=== PATIENT | male | born 1950 | race Caucasian/White ===

== ENCOUNTER 2023-06-27 18:14 | Emergency (ER) | payer OTHER, SELFPAY ==
[2023-06-27 18:19] VITALS: BP 163/73
[2023-06-27 18:31] LABS: % Basophils 0.3 % (0-2); % Eosinophils 2.3 % (0-6); % Immature Granulocytes 0.4 % (0-0.5); % Lymphocytes 26.8 % (20.5-51.1); % Monocytes 8.9 % (1.7-9.3); % Neutrophils 61.3 % (42.2-75.2); Absolute Eosinophils 0.2 10^3/uL (0-0.7); Absolute Lymphocytes 2.5 10^3/uL (1.2-3.4); Absolute Monocytes 0.8 10^3/uL (0.1-0.6); Absolute Neutrophils 5.6 10^3/uL (1.4-6.5); Hematocrit 41.1 % (39.0-52.0); Hemoglobin 14.7 g/dL (13.0-18.0); Mean Corp Hgb Conc. 35.8 g/dL (33.0-37.0); Mean Corpuscular Hgb 31.7 pg (27.0-31.0); Mean Corpuscular Volume 88.6 fL (80.0-94.0); Mean Platelet Volume 10.1 fL (7.4-10.4); Nucleated Red Blood Cells % 0 % (-); Platelet Count 193 10^3/uL (130-400); Red Blood Cell Count 4.64 10^6/uL (4.70-6.10); Red Cell Dist. Width 12.8 % (11.5-14.5); White Blood Cell Count 9.2 10^3/uL (4.8-10.8)
[2023-06-27 18:42] LABS: ALT (SGPT) 25 U/L (0-50); AST (SGOT) 31 U/L (17-59); Albumin 4.2 g/dl (3.5-5.0); Alkaline Phosphatase 87 U/L (38-126); Blood Urea Nitrogen 18 mg/dl (9-20); Calcium 9.4 mg/dl (8.4-10.2); Carbon Dioxide 27 mmol/L (22-30); Chloride 104 mmol/L (98-107); Glucose 105 mg/dl (70-99); Potassium 4.1 mmol/L (3.5-5.1); Sodium 136 mmol/L (135-145); Total Bilirubin 0.6 mg/dl (0.2-1.3); Total Protein 6.7 g/dl (6.3-8.2); eGFR > 60.00
[2023-06-27] MEDS: TYLENOL 1000 MG PO (19:48)
[2023-06-27 19:53] VITALS: BP 148/73
--- NOTE | 2023-06-27 20:48 | ED.GENMED ---
History of Present Illness
General
Chief Complaint: Headache
Source: patient
Exam Limitations: none
Time Seen by Provider: 06/27/23 19:40
Nursing documentation reviewed up to this point in time: agreed with
Travel History
Have you had any contact with someone who has COVID-19?: No
Do you have any symptoms of coronavirus? Fever > 100 degrees, chills, cough, shortness of breath, sore throat, loss of taste or smell, muscle aches, or headache?: No
History of Present Illness
History of Present Illness:
Patient to ED iw complaint of worsening headache. Symptoms started 2 days ago and continue to worsen. Pain worse with forward bending. Denies fever/chills, n/v/d. No recent illness. Brought self to ED for eval.
Past History
Past History
ED Past Medical History: None, Cancer and Hypercholesterolemia
ED Past Surgical History: Tonsilectomy and Urological
Social History
Tobacco: Non-smoker
Personal:
Living: with family
Review of Systems
Review of Systems
Allergies reviewed?: Yes
All Other Systems: ROS reviewed and negative except as documented in HPI and ROS
Constitutional: Reports no symptoms
EENT: Reports other (Frontal sinus pressure)
Respiratory: Reports no symptoms
Cardiac: Reports no symptoms
ABD/GI: Reports no symptoms
: Reports no symptoms
Musculoskeletal: Reports no symptoms
Skin: Reports no symptoms
Neurological: Reports headache
Psychiatric: Reports no symptoms
Phy Exam
General Physical Exam
General Presentation: well appearing and no apparent distress
General age: appears stated age
General Skin: warm and dry
General Habitus: normal
General Mental: alert
General Hydration: appears well hydrated
ENT Exam
ENT Exam: EOMI, TM's normal, pharynx normal, neck supple, normocephalic and swallowing well
Eye Exam
Eye Exam: PERRL, EOMI, conjunctiva normal and globe normal
Neurological Exam
Neurological Exam: alert, oriented x3, CN II-XII intact, no motor deficits, no sensory deficits and speech normal
Musculoskeletal Exam
Musculoskeletal Exam: full ROM and neuro vasc intact
Skin Exam
Skin Exam: normal color, warm/dry and no rash
Psychiatric Exam
Psychiatric Exam: normal mood/affect
Course
Orders/Labs/Results
Orders:
Orders
06/27/23 18:24
Complete Blood Count/With Diff Urgent
Comprehensive Metabolic Panel Urgent
06/27/23 19:42
CT Head W/o Iv Contrast Urgent
Comment:
Reason For Exam: atypical head pain
Sinuses wo Contrast CT [CT Sinuses W/o Iv Contrast] Urgent
Comment:
Reason For Exam: head pain
06/27/23 19:43
Acetaminophen [Tylenol] 1,000 mg PO NOW STA
06/27/23 20:43
Amoxicillin [Amoxil] 500 mg PO NOW STA
Abnormal Lab Results
06/27/23
18:24
RBC 4.64 L 10^6/uL
(4.70-6.10)
MCH 31.7 H pg
(27.0-31.0)
Absolute Monos (auto) 0.8 H 10^3/uL
(0.1-0.6)
Glucose 105 H mg/dl
(70-99)
06/27/23 18:24
06/27/23 18:24
Vital Signs
Initial and Last Documented VS:
Initial Vital Signs
Temp Pulse Resp BP Pulse Ox
98.0 F 69 16 163/73 98
06/27/23 18:19 06/27/23 18:19 06/27/23 18:19 06/27/23 18:19 06/27/23 18:19
Last Documented Vital Signs
Temp Pulse Resp BP Pulse Ox
98.0 F 63 16 148/73 96
06/27/23 18:19 06/27/23 19:53 06/27/23 19:53 06/27/23 19:53 06/27/23 19:53
*Radiology
Radiology exam reviewed: radiology read reviewed
*Pulse Oximetry
Patient hypoxic: no
*Critical Care Note
Total Time (30-74mins, 75-104mins- exclusive of procedures): Not Applicable
ED Attending Note
-
Portions of this chart may have been created with voice recognition software.� Occasional wrong word or��sound alike� substitutions may have occurred due to the inherent limitations of voice recognition software.
Discharge Plan
Departure
Patient Disposition: Home (Routine Discharge)
Date of Disposition: 06/27/23
Time of Disposition: 20:46
Patient with high blood pressure during this ER visit?: No
Condition: Good
Covid-19: Not Applicable
Discharge Problem:
Acute sinusitis, Headache
Instructions: Sinusitis, Adult (DC), Headache, Adult (DC)
Prescriptions:
New
amoxicillin 500 mg tablet
500 mg PO TID Qty: 29 0RF
No Action
lorazepam 1 MG tablet
1 mg PO BID
Patient Comments:
11/12/2019: last filled 10/21/19, 60 tabs for 30 days from [facility] [id number]
aspirin 81 MG tablet,delayed release (DR/EC)
81 mg PO DAILY Qty: 30 0RF
amoxicillin-pot clavulanate 875-125 mg tablet
1 tab PO BID Qty: 20 0RF
lidocaine 5 % adhesive patch,medicated
1 patch topical DAILY PRN (Reason: pain) Qty: 15 0RF
Referrals:
Dallin Bailey, DO [Family Provider] - Follow up in 2-3 days
Interventions
Interventions:
*Risk Screen - Suicide Last Done: 06/27/23 19:40
*General Assessment Last Done: 06/27/23 19:40
*Neglect/Abuse Screening Last Done: 06/27/23 19:40
ED- Fall Risk Assessment Last Done: 06/27/23 19:41
*ED COVID-19 Vaccine History Last Done: 06/27/23 18:19
ED- Neurological Assessment Last Done: 06/27/23 19:41
[2023-06-27] MEDS: AMOXIL 500 MG PO (21:01)
== END 2023-06-27 21:15 | disposition home or self-care (01) ==
LOC: EMR 18:14
PROVIDERS: Emergency Medicine; EMERGENCY PHYSICIAN Emergency Medicine; FAMILY PHYSICIAN Family Medicine
DX: J01.90 Acute sinusitis, unspecified (principal); R51.9 Headache, unspecified
CPT/HCPCS: 99284; 70450; 70486; 80053; 85025

== ENCOUNTER → 2023-08-15 12:26 | Outpatient (REF) | payer OTHER, SELFPAY | LOC: HWRAD 12:26 | PROVIDERS: ATTENDING PHYSICIAN Family Medicine | DX: M25.552 Pain in left hip (principal) | CPT/HCPCS: 73502 ==

== ENCOUNTER 2024-04-19 21:12 | Emergency (ER) | payer OTHER, SELFPAY ==
[2024-04-19 21:18] VITALS: BP 167/91
--- NOTE | 2024-04-19 21:19 | ED.GENMED ---
ED Provider Triage
-
Patient seen by provider in Triage?: Seen in Triage
Attestation: A medical screening examination has been initiated by a qualified medical provider. Based on the assessment performed at this time, it has been determined that an emergent medical condition may exist and the patient has been informed
that further medical evaluation and possible additional diagnostic testing may be needed.
HPI: 73-year-old male with months of neck pain, saw primary care provider today and was given prescription from meloxicam, lorazepam and Robaxin. Took these medications without any relief and contacted primary care provider back who recommended
patient come to the ER. Pain is shooting down the right arm. No focal weakness or numbness. Has not had any imaging for this since pain started a few months ago. Cervical spine x-ray ordered.
GENERAL: Alert , in no apparent distress
EYE: No visual abnormalities.
NECK: Trachea midline
ENT: No visible abnormalities.
LUNGS: No acute respiratory distress
NEUROLOGICAL: Alert and oriented
SKIN: Skin intact. No visible changes.
MUSCULOSKELETAL: Moving extremities normally
PSYCH: Normal and appropriate interaction.
This is a medical evaluation conducted in person to initiate diagnostic evaluation and provide initial therapeutics. Please see further documentation by the treating clinician.
History of Present Illness
General
Chief Complaint: Musculo-Skeletal Complaint
Source: patient
Time Seen by Provider: 04/19/24 22:23
History of Present Illness
History of Present Illness:
73-year-old male presenting to the emergency department for evaluation of chronic pain that has been gradually worsening, now with pain radiating down his right arm, constant and worse when extending his neck upward stating it feels as if he is
having a bad spasm. Patient saw primary care provider today who started him on meloxicam, lorazepam and another muscle relaxer which he took without any relief. Denies any trauma, fevers or infectious symptoms, focal weakness or numbness or any
other concerns. Patient is only seen his primary care today and has not seen any other specialist.
Past History
Past History
ED Past Medical History: Cancer and Hypercholesterolemia
ED Past Surgical History: Tonsilectomy and Urological
Social History
Tobacco: Non-smoker
Alcohol: None
Drug: None
Personal:
Living: with family
Review of Systems
Review of Systems
All Other Systems: ROS reviewed and negative except as documented in HPI and ROS
Phy Exam
Physical Exam
Physical Exam:
GENERAL: Alert , in no apparent distress
EYE: conjunctiva clear
Head: Normocephalic atraumatic
NECK: Supple, no focal midline tenderness, holding neck flexion
ENT: mmm.
LUNGS: no acute respiratory distress
NEUROLOGICAL: Alert and oriented, moves all extremities, intact and equal biceps, triceps and brachioradialis deep tendon reflexes, sensation grossly intact to light touch throughout upper extremities bilateral
SKIN: Warm and dry, skin intact.
MUSCULOSKELETAL: well perfused.
PSYCH: Normal and appropriate interaction.
Scores
Heart Failure Risk
Heart Failure Risk Score: Not Applicable
Heart Score for Chest Pain Patients
STEMI patient?: Not applicable
Withdrawal Assessment of Alcohol
Withdrawal Assessment Completed?: Not applicable
Course
Orders/Labs/Results
Orders:
Orders
04/19/24 21:20
CR Cervical Spine 4 Or 5 Vw Urgent
Comment:
Reason For Exam: right sided radiculopathy
04/19/24 22:24
Ketorolac [Toradol] 30 mg IM NOW STA
Vital Signs
Initial and Last Documented VS:
Initial Vital Signs
Temp Pulse Resp BP Pulse Ox
98.1 F 73 15 167/91 98
04/19/24 21:18 04/19/24 21:18 04/19/24 21:18 04/19/24 21:18 04/19/24 21:18
Last Documented Vital Signs
Temp Pulse Resp BP Pulse Ox
98.1 F 71 20 136/97 98
04/19/24 21:18 04/19/24 22:24 04/19/24 22:24 04/19/24 22:24 04/19/24 22:24
MDM/Problems Addressed
Differential Diagnosis Includes:
Cervical radiculopathy, spinal stenosis, disc herniation, nerve impingement, I do not have concern for infectious etiology nor spinal cord impingement
MDM/Problems Addressed:
73-year-old male presenting to the ER for acute on chronic neck pain/radicular pain. Pain has been ongoing for months but has been gradually getting worse, saw primary care provider today and given multiple oral medications but patient took without
any relief. Primary care provider recommended patient come to the ER since pain is worsening this evening. X-ray imaging was ordered and shows significant degenerative changes throughout most of the cervical spine. At this time I do not feel
there is any emergent pathologies and that patient will likely need out imaging including an MRI. I provided the patient with information for orthopedics and pain management. Provided with a dose of Toradol here and sent a prescription for Medrol
Dosepak to pharmacy. Patient is otherwise stable for discharge home.
*Radiology
Radiology exam reviewed: preliminary read by ED provider (Degenerative changes throughout the cervical spine)
*Pulse Oximetry
Patient hypoxic: no
*Critical Care Note
Total Time (30-74mins, 75-104mins- exclusive of procedures): Not Applicable
ED Attending Note
-
Portions of this chart may have been created with voice recognition software.� Occasional wrong word or��sound alike� substitutions may have occurred due to the inherent limitations of voice recognition software.
Discharge Plan
Departure
Patient Disposition: Home (Routine Discharge)
Date of Disposition: 04/19/24
Time of Disposition: 22:28
Patient with high blood pressure during this ER visit?: Yes
Discharge Problem:
Cervical radiculopathy
Instructions: Radiculopathy (DC)
Prescriptions:
New
methylprednisolone [Medrol ([place])] 4 mg tablets,dose pack
4 mg PO DIRECTED Qty: 21 0RF
No Action
lorazepam 1 MG tablet
2 mg PO TID
Patient Comments:
11/12/2019: last filled 10/21/19, 60 tabs for 30 days from [facility]
meloxicam 15 mg Tablet
15 mg PO DAILY
Referrals:
Elton Sharma MD [Active] - (Pain Management)
Ozzie Cano MD [Active] - (Ortho)
Interventions
Interventions:
*Risk Screen - Suicide Last Done: 04/19/24 21:15
*General Assessment Last Done: 04/19/24 22:25
*Neglect/Abuse Screening Last Done: 04/19/24 21:15
ED- Fall Risk Assessment Last Done: 04/19/24 22:30
*ED COVID-19 Vaccine History Last Done: 04/19/24 22:22
*Nursing Disposition Last Done: 04/19/24 22:37
ED-Musculoskeletal Assessment Last Done: 04/19/24 22:30
Discharge Date and Time
Discharge Date/Time: 04/19/24 22:40
Print Language: PAKISTANI
[2024-04-19 22:24] VITALS: BP 136/97
[2024-04-19] MEDS: TORADOL 30 MG IM (22:34)
== END 2024-04-19 22:40 | disposition home or self-care (01) ==
LOC: EMR 21:12
PROVIDERS: EMERGENCY PHYSICIAN Student in an Organized Health Care Education/Training Program; FAMILY PHYSICIAN Family Medicine
DX: M47.22 Other spondylosis with radiculopathy, cervical region (principal); M79.601 Pain in right arm; R03.0 Elevated blood-pressure reading, without diagnosis of hypertension; E78.00 Pure hypercholesterolemia, unspecified; Z85.9 Personal history of malignant neoplasm, unspecified; Z88.5 Allergy status to narcotic agent; Z88.8 Allergy status to other drugs, medicaments and biological substances
CPT/HCPCS: 99284; 96372; 72050

== ENCOUNTER 2024-07-06 21:24 | Observation (INO) | payer OTHER, SELFPAY ==
[2024-07-06] VITALS (9 sets, daily range): BP systolic 90–153; BP diastolic 52–87; BMI 30.8
--- NOTE | 2024-07-06 13:49 | ED.GENMED ---
ED Provider Triage
<Didier Plascencia PA-C - Last Filed: 07/06/24 13:50>
-
Patient seen by provider in Triage?: Seen in Triage
Attestation: A medical screening examination has been initiated by a qualified medical provider. Based on the assessment performed at this time, it has been determined that an emergent medical condition may exist and the patient has been informed
that further medical evaluation and possible additional diagnostic testing may be needed.
HPI: At 12:50 PM patient started to experience what he believes to be visual disturbance in his right eye describing it as if he was unable to see out of his central vision for approximately 30 minutes, symptoms resolved but now has a continued mild
headache and states he 'feels off balance'. Patient was observed ambulating with no ataxia. Denies any history of similar. States he felt as if his heart racing a little bit earlier this morning. No known cardiac abnormalities. Vital signs
noted. No stroke alert called given patient at this time is not exhibiting any acute neurologic symptoms. CT of the head, EKG and labs were ordered including ESR/CRP.
GENERAL: Alert , in no apparent distress
EYE: No visual abnormalities.
NECK: Trachea midline
ENT: No visible abnormalities.
LUNGS: No acute respiratory distress
NEUROLOGICAL: Alert and oriented
SKIN: Skin intact. No visible changes.
MUSCULOSKELETAL: Moving extremities normally
PSYCH: Normal and appropriate interaction.
This is a medical evaluation conducted in person to initiate diagnostic evaluation and provide initial therapeutics. Please see further documentation by the treating clinician.
History of Present Illness
<Didier Plascencia PA-C - Last Filed: 07/06/24 13:50>
General
Chief Complaint: Visual Problem
Time Seen by Provider: 07/06/24 18:10
<GISELA Sherwood - Last Filed: 07/06/24 23:54>
General
Exam Limitations: none
Nursing documentation reviewed up to this point in time: agreed with
History of Present Illness
History of Present Illness:
Patient is a 73-year-old male who presents to the ER for evaluation. Patient reports around 1 PM of watching TV he suddenly developed decreased vision. He reports the center part of his vision was distorted and bright and he also cannot see the
left lower visual field. He reports this lasted about 15 minutes was very anxious. He had no associated headache with the symptoms but does have a headache now. He reports a headache develop when he arrived to the the ER. He does also complain
of light sensitivity presently. His headache is in his frontal aspect.
He denies any upper or lower extremity numbness tingling weakness. He does report he felt his heart racing prior to this event but reports he does have anxiety and this is typical of his symptoms. He did take an Ativan when symptoms occur but
did not make a difference. He had no chest pain.
He does have a history of high cholesterol but does not take any meds for it.
Past History
<Didier Plascencia PA-C - Last Filed: 07/06/24 13:50>
Past History
ED Past Medical History: Cancer and Hypercholesterolemia
ED Past Surgical History: Tonsilectomy and Urological
Social History
Tobacco: Non-smoker
Alcohol: None
Drug: None
Personal:
Living: with family
Review of Systems
<GISELA Sherwood - Last Filed: 07/06/24 23:54>
Review of Systems
Allergies reviewed?: Yes
All Other Systems: ROS reviewed and negative except as documented in HPI and ROS
Constitutional: Denies fever, fatigue or chills
EENT: Reports other (Patient complains of visual deficit which occurred around 1 PM watching TV today. Symptoms resolved after 15 minutes)
Respiratory: Reports no symptoms
Cardiac: Reports palpitations (pt had palpitations )
ABD/GI: Reports no symptoms; Denies abdominal pain, nausea or vomiting
: Reports no symptoms
Musculoskeletal: Reports no symptoms
Skin: Reports no symptoms
Neurological: Reports headache (headache now )
Psychiatric: Reports no symptoms
Phy Exam
<GISELA Sherwood - Last Filed: 07/06/24 23:54>
General Physical Exam
General Presentation: no apparent distress
General age: appears stated age
General Skin: warm and dry
General Habitus: normal
General Mental: alert
General Hydration: appears well hydrated
ENT Exam
ENT Exam: EOMI and neck supple
Eye Exam
Eye Exam: PERRL, EOMI, conjunctiva normal and visual ortiz normal
Eye Exam General: PERRL: bilateral and EOM intact: bilateral
Pupil Exam: Bilateral: round and reactive
Cardiovascular Exam
Cardiovascular Exam: regular rate/rhythm, no murmur and normal peripheral pulses
Pulmonary Exam
Pulmonary Exam: lungs clear and no respiratory distress
Neurological Exam
Neurological Exam: alert and oriented x3
Cerebellar
Cerebellar Function: normal finger to nose
Musculoskeletal Exam
Musculoskeletal Exam: full ROM
Skin Exam
Skin Exam: normal color and warm/dry
Course
<Didier Plascencia PA-C - Last Filed: 07/06/24 13:50>
Orders/Labs/Results
Orders:
Orders
07/06/24 13:45
CT Head W/o Iv Contrast Urgent
Comment:
Reason For Exam: right eye visual disturbance, resolved, headache
07/06/24 13:48
Electrocardiogram (*1) Urgent
Reason for Study: TIA/Stroke
EKG- Treatment ONCE
07/06/24 14:07
Basic Metabolic Panel Urgent
CRP [C-Reactive Protein] Urgent
Complete Blood Count/With Diff Urgent
ESR [Erythrocyte Sed Rate] Urgent
07/06/24 18:46
Acetaminophen [Tylenol] 1,000 mg PO NOW STA
07/06/24 19:13
CT Head & Neck Angio W/wo IV Urgent
Comment:
Reason For Exam: transient vision loss
07/06/24 19:22
0.9% Sodium Chloride 1000 ml [Nss] 1,000 ml IV BOLUS
07/06/24 19:23
Visual Acuity- Treatment ONCE
07/06/24 20:38
Aspirin 325 mg PO NOW STA
07/06/24 20:39
Admit/Transfer Patient As Directed
Co-Sign Provider:
Level of Care: Observation services
Assign to:: Telemetry
Physician / Group: Brijesh Maravilla
Diagnosis: visual disturbance, TIA/CVA
Reason for Telemetry: CVA/TIA
Date to Stop Telemetry: 07/09/24
Time to Stop Telemetry: 11:00
Code Status As Directed
Resuscitation Status: Full Code
PRN Pain Medication Management As Directed
May give lesser potent ordered pain med per pt: Yes
preference::
Protocol:: Medication orders for pain may be administered in a
manner that supports deferring to patient preference
when the pt is:
- Requesting an ordered lesser potent pain medication.
Least to most potent pain medications are defined
as: acetaminophen < NSAID < tramadol < opioids
(morphine, oxycodone, hydromorphone).
- Requesting a lesser dose of the same medication IF
ORDERED.
- Requesting a less intrusive route of administration
if both routes are prescribed by the provider (PO <
IV).
07/06/24 22:29
Acetaminophen [Tylenol] 650 mg PO Q4HPRN PRN
Lorazepam [Ativan] 2 mg PO TIDPRN PRN
07/06/24 22:29
Case Management Consult ONCE
Case Management Consult: Discharge Planning
Comment: stroke/tia
DIETARY CONSULT Routine
Reason for Consult: stroke/TIA
NEUROLOGY CONSULT Urgent
Consulting Provider: Jaki Colmenares
Was physician already notified: Yes
Brewery Representative Urgent
Urinalysis Routine
MR Brain Without Contrast Routine
Comment:
Reason For Exam: stroke/TIA
Recent pill cam endoscopy?: No
Activity As Directed
Activity Level: Out of Bed-Early Mobility
NIH Stroke Scale As Directed
Directions: Per protocol
Comment: every shift and with any change in condition or mental status
Neurological Checks As Directed
Frequency: q4h
Additional Instructions:: q4h x 24h upon admission to the floor, then qshift & with any change in condition
and mental status
Patient Education As Directed
Type: Stroke education packet
Comment: provide to patient and family
Pneumatic Compression Sleeves As Directed
Type: Knee high
Swallow Screening CVA/TIA ONLY As Directed
Comment: NPO until swallowing screening completed
If patient FAILS swallow screening:: NPO, Speech Therapy consult, Aspiration Precautions
If patient PASSES swallow screening, diet:: Cholesterol Lowering
Vital Signs As Directed
Frequency: Per unit guidelines
Ot Eval And Treat Routine
Pt Eval And Treat Routine
Activity Level: Out of Bed-Early Mobility
Speech Therapy Eval & Treat Routine
DX Deep Vein Thrombosis Video Routine
07/07/24 06:00
Cardiovascular Evaluation IN AM
Comprehensive Metabolic Panel IN AM
Glycohemoglobin (HgbA1c) IN AM
PTT IN AM
Prothrombin Time IN AM
Troponin I IN AM
07/07/24 12:00
Lactobac/Bifidobac [Visbiome] 1 cap PO DAILY@1200
07/09/24 11:00
DC Protocol for Telemetry ONCE
Abnormal Lab Results
07/06/24
14:07
MCH 31.2 H pg
(27.0-31.0)
Glucose 122 H mg/dl
(70-99)
07/06/24 14:07
07/06/24 14:07
Vital Signs
Initial and Last Documented VS:
Initial Vital Signs
Temp Pulse Resp BP Pulse Ox
98.1 F 77 18 153/82 96
07/06/24 13:47 07/06/24 13:47 07/06/24 13:47 07/06/24 13:47 07/06/24 13:47
Last Documented Vital Signs
Temp Pulse Resp BP Pulse Ox
98.1 F 57 19 142/78 97
07/06/24 23:44 07/06/24 23:44 07/06/24 23:44 07/06/24 23:44 07/06/24 23:44
<GISELA Sherwood - Last Filed: 07/06/24 23:54>
Orders/Labs/Results
Orders:
Orders
07/06/24 13:45
CT Head W/o Iv Contrast Urgent
Comment:
Reason For Exam: right eye visual disturbance, resolved, headache
07/06/24 13:48
Electrocardiogram (*1) Urgent
Reason for Study: TIA/Stroke
EKG- Treatment ONCE
07/06/24 14:07
Basic Metabolic Panel Urgent
CRP [C-Reactive Protein] Urgent
Complete Blood Count/With Diff Urgent
ESR [Erythrocyte Sed Rate] Urgent
07/06/24 18:46
Acetaminophen [Tylenol] 1,000 mg PO NOW STA
07/06/24 19:13
CT Head & Neck Angio W/wo IV Urgent
Comment:
Reason For Exam: transient vision loss
07/06/24 19:22
0.9% Sodium Chloride 1000 ml [Nss] 1,000 ml IV BOLUS
07/06/24 19:23
Visual Acuity- Treatment ONCE
07/06/24 20:38
Aspirin 325 mg PO NOW STA
07/06/24 20:39
Admit/Transfer Patient As Directed
Co-Sign Provider:
Level of Care: Observation services
Assign to:: Telemetry
Physician / Group: Brijesh Maravilla
Diagnosis: visual disturbance, TIA/CVA
Reason for Telemetry: CVA/TIA
Date to Stop Telemetry: 07/09/24
Time to Stop Telemetry: 11:00
Code Status As Directed
Resuscitation Status: Full Code
PRN Pain Medication Management As Directed
May give lesser potent ordered pain med per pt: Yes
preference::
Protocol:: Medication orders for pain may be administered in a
manner that supports deferring to patient preference
when the pt is:
- Requesting an ordered lesser potent pain medication.
Least to most potent pain medications are defined
as: acetaminophen < NSAID < tramadol < opioids
(morphine, oxycodone, hydromorphone).
- Requesting a lesser dose of the same medication IF
ORDERED.
- Requesting a less intrusive route of administration
if both routes are prescribed by the provider (PO <
IV).
07/06/24 22:29
Acetaminophen [Tylenol] 650 mg PO Q4HPRN PRN
Lorazepam [Ativan] 2 mg PO TIDPRN PRN
07/06/24 22:29
Case Management Consult ONCE
Case Management Consult: Discharge Planning
Comment: stroke/tia
DIETARY CONSULT Routine
Reason for Consult: stroke/TIA
NEUROLOGY CONSULT Urgent
Consulting Provider: Jaki Colmenares
Was physician already notified: Yes
Brewery Representative Urgent
Urinalysis Routine
MR Brain Without Contrast Routine
Comment:
Reason For Exam: stroke/TIA
Recent pill cam endoscopy?: No
Activity As Directed
Activity Level: Out of Bed-Early Mobility
NIH Stroke Scale As Directed
Directions: Per protocol
Comment: every shift and with any change in condition or mental status
Neurological Checks As Directed
Frequency: q4h
Additional Instructions:: q4h x 24h upon admission to the floor, then qshift & with any change in condition
and mental status
Patient Education As Directed
Type: Stroke education packet
Comment: provide to patient and family
Pneumatic Compression Sleeves As Directed
Type: Knee high
Swallow Screening CVA/TIA ONLY As Directed
Comment: NPO until swallowing screening completed
If patient FAILS swallow screening:: NPO, Speech Therapy consult, Aspiration Precautions
If patient PASSES swallow screening, diet:: Cholesterol Lowering
Vital Signs As Directed
Frequency: Per unit guidelines
Ot Eval And Treat Routine
Pt Eval And Treat Routine
Activity Level: Out of Bed-Early Mobility
Speech Therapy Eval & Treat Routine
DX Deep Vein Thrombosis Video Routine
07/07/24 06:00
Cardiovascular Evaluation IN AM
Comprehensive Metabolic Panel IN AM
Glycohemoglobin (HgbA1c) IN AM
PTT IN AM
Prothrombin Time IN AM
Troponin I IN AM
07/07/24 12:00
Lactobac/Bifidobac [Visbiome] 1 cap PO DAILY@1200
07/09/24 11:00
DC Protocol for Telemetry ONCE
Abnormal Lab Results
07/06/24
14:07
MCH 31.2 H pg
(27.0-31.0)
Glucose 122 H mg/dl
(70-99)
07/06/24 14:07
07/06/24 14:07
Vital Signs
Initial and Last Documented VS:
Initial Vital Signs
Temp Pulse Resp BP Pulse Ox
98.1 F 77 18 153/82 96
07/06/24 13:47 07/06/24 13:47 07/06/24 13:47 07/06/24 13:47 07/06/24 13:47
Last Documented Vital Signs
Temp Pulse Resp BP Pulse Ox
98.1 F 57 19 142/78 97
07/06/24 23:44 07/06/24 23:44 07/06/24 23:44 07/06/24 23:44 07/06/24 23:44
<GISELA Sherwood - Last Filed: 07/06/24 23:54>
MDM/Problems Addressed
Differential Diagnosis Includes:
Not limited to CVA, ocular migraine
MDM/Problems Addressed:
As documented patient is a 73-year-old male who presented for visual disturbance which occurred at 1 PM while watching TV. This lasted for 15 minutes. He had no other symptoms during Episode of visual disturbance. He does have anxiety and had
palpitations prior to episode. He currently to my exam has a headache and reported that started when he came to the hospital. He has mild light sensitivity. He has no past medical history of migraines. He does have a history of high cholesterol
was supposed to take a statin but has not.
He does complain of mild frontal headache now and a little light sensitivity. He denies any recent fever chills injury. He is on blood thinners. His CAT scan is negative. He has no neurological deficits on exam no visual field deficits.
[facility] who does recommend CTA head and neck with IV contrast and
recommends admission
CTA negative for significant stenosis involving the carotid bulbs or proximal internal carotid arteries bilaterally no significant narrowing of the vertebrobasilar arteries no evidence for arterial dissection. There is suggestion of narrowing in
the range of 50% diameter for the right subclavian artery
Chronic conditions affecting care:
Hypercholesteremia untreated, anxiety
<GISELA Sherwood - Last Filed: 07/06/24 23:54>
*Radiology
Radiology exam reviewed: radiology read reviewed
*Pulse Oximetry
Patient hypoxic: no
*EKG
Interpreted by ED Provider?: Yes
Comparison EKG: no changes
Heart Rate: 55
Rate: bradycardiac
Rhythm: sinus
Ischemia: no ischemia
*Critical Care Note
Total Time (30-74mins, 75-104mins- exclusive of procedures): Not Applicable
<GISELA Sherwood - Last Filed: 07/06/24 23:54>
Patient Management
Discussion with other providers: Hospice Chaplain (neuro DR Colmenares )
ED Attending Note
<Didier Plascencia PA-C - Last Filed: 07/06/24 13:50>
-
Portions of this chart may have been created with voice recognition software.� Occasional wrong word or��sound alike� substitutions may have occurred due to the inherent limitations of voice recognition software.
Discharge Plan
Departure
Patient Disposition: Admit
Date of Disposition: 07/06/24
Time of Disposition: 19:25
Admit to: Med/Surg
Admit to doctor: hospitalist
Presentation/result/management discussed w/ accepting MD/DO: Hospitalist
Patient with high blood pressure during this ER visit?: Yes
Condition: Fair
Covid-19: Not Applicable
Discharge Problem:
Visual disturbance
Interventions
Interventions:
*Risk Screen - Suicide Last Done: 07/06/24 22:55
*General Assessment Last Done: 07/06/24 17:22
*Neglect/Abuse Screening Last Done: 07/06/24 17:22
ED- Fall Risk Assessment Last Done: 07/06/24 17:22
*ED COVID-19 Vaccine History Last Done: 07/06/24 22:55
*Nursing Disposition Last Done: 07/06/24 22:25
ED- Neurological Assessment Last Done: 07/06/24 17:22
ED-EENT Assessment Last Done: 07/06/24 20:18
ED Swallowing Screen Last Done: 07/06/24 19:05
Discharge Date and Time
Discharge Date/Time: 07/06/24 22:30
[2024-07-06 14:28] LABS: % Basophils 0.7 % (0-2); % Eosinophils 2.3 % (0-6); % Immature Granulocytes 0.3 % (0-0.5); % Lymphocytes 23.5 % (20.5-51.1); % Monocytes 7.2 % (1.7-9.3); Absolute Basophils 0.1 10^3/uL (0-0.2); Absolute Eosinophils 0.2 10^3/uL (0-0.7); Absolute Lymphocytes 1.7 10^3/uL (1.2-3.4); Absolute Monocytes 0.5 10^3/uL (0.1-0.6); Absolute Neutrophils 4.9 10^3/uL (1.4-6.5); Hemoglobin 15.7 g/dL (13.0-18.0); Mean Corp Hgb Conc. 34.1 g/dL (33.0-37.0); Mean Corpuscular Hgb 31.2 pg (27.0-31.0); Mean Corpuscular Volume 91.5 fL (80.0-94.0); Mean Platelet Volume 10.4 fL (7.4-10.4); Nucleated Red Blood Cells % 0 % (-); Platelet Count 201 10^3/uL (130-400); Red Blood Cell Count 5.03 10^6/uL (4.70-6.10); White Blood Cell Count 7.4 10^3/uL (4.8-10.8)
[2024-07-06 14:35] LABS: Blood Urea Nitrogen 14 mg/dl (9-20); Calcium 9.6 mg/dl (8.4-10.2); Carbon Dioxide 24 mmol/L (22-30); Chloride 103 mmol/L (98-107); Erythrocyte Sed Rate 2 mm/hour (0-20); Glucose 122 mg/dl (70-99); Sodium 137 mmol/L (135-145); eGFR > 60.00
[2024-07-06 16:24] LABS: C-Reactive Protein < 5.00 mg/L (0.0-10.00)
[2024-07-06] MEDS: TYLENOL 1000 MG PO (19:01)
[2024-07-06] MEDS: NSS 1000 IV (19:30)
--- NOTE | 2024-07-06 20:17 | HPS.HSE ---
Family Physician
-
Family Physician: Dallin Bailey
Chief Complaint
-
visual disturbance
History of Present Illness
Patient is a 73-year-old male with past medical history significant for migraines, anxiety and hx prostate cancer who presented to [facility] ED for evaluation of visual disturbance as recommended by primary care provider. Patient was
watching TV early this afternoon when he had acute onset of presbyopia and vision lost bilaterally in the left lower quadrant, he states he turned TV off and continued with symptoms for approximately 15 minutes. Patient reports that vision has
returned and remains complete with no deficit. Patient called and notified his primary care provider who instructed him to go to ED for evaluation and treatment. Patient does report a mild headache post visual disturbance and continues currently
during assessment. Patient denies any episode similar to this in the past. He denies any dizziness, confusion, cough, shortness of breath, chest pain, or palpitations.
Medical History
Past Medical History
Past Medical History: Reports Other
Additional Past Medical History:
migraines
anxiety
hx prostate cancer
mitral valve prolapse
hypercholesterolemia
Past Surgical History: Reports Other
Additional Past Surgical History:
prostatectomy
tonsillectomy
Social History
Tobacco: Non-smoker
Alcohol: Daily (couple of beers daily )
Drug: None
Personal:
Living: With Family
Employment: Retired
Family History
Family History: Other (Mother: lung cancer )
Allergies / Home Medications
Allergies reflects when Allergies were last updated in [facility].
Home Medications with original date entered in [facility]
Allergy/Medication List:
Allergies
Allergy/AdvReac Type Severity Reaction Status Date / Time
morphine Allergy hallucinati Verified 07/06/24 13:53
ons
Home Medications
Lactobac no.2-Bifidobac no.1-S. thermo 112.5 billion cell capsule (Visbiome) 1 cap PO DAILY@1200 07/06/24
lorazepam 2 mg tablet 2 mg PO TIDPRN PRN anxiety 07/06/24
Review of Systems
-
History Source: Patient
Constitutional: Reports No Symptoms
EENT: Reports No Symptoms
Respiratory: Reports No Symptoms
Cardiac: Reports No Symptoms
Abdomen/GI: Reports No Symptoms
: Reports No Symptoms
Musculoskeletal: Reports No Symptoms
Skin: Reports No Symptoms
Neurological: Reports Headache and Other (visual disturbance in lower left quadrant for approximately 15 minutes and has since resolved with no deficit )
Endocrine: Reports No Symptoms
Hematologic/Lymphatic: Reports No Symptoms
Psych: Reports No Symptoms
Physical Exam
Vital Signs
Vital Signs
Temp Pulse Resp BP Pulse Ox
98.1 F 66 20 134/81 98
07/06/24 13:47 07/06/24 16:00 07/06/24 16:00 07/06/24 19:03 07/06/24 19:15
Physical Exam
General: Well Developed, Well Nourished, No Apparent Distress, Comfortable, Conversant and Obese
HEENT: NormoCephalic, Moist mucous membranes, Atraumatic, [place] Conjunctivae, Nose Appears Normal and Ears Appear Normal
Respiratory: Clear and Non Labored Respirations
Cardiac: S1/S2 and Regular Rhythm; No Murmur, Rub or Gallop
GI: Soft, Non Tender, Non Distended and Normal Bowel Sounds; No Organomegaly
Rectal: Deferred by Provider
Genito-urinary: Deferred by me
Musculoskeletal: No Clubbing, No Cyanosis and No Edema
Skin: No Rash
Neuro: Awake, Alert, AO x 3, Nonfocal/grossly intact and No Sensory Deficits
Psych: Calm and Intact Judgment/Insight
Laboratory Results
-
07/06/24 14:07
07/06/24 14:07
Data Reviewed
-
CT Scan: Report Reviewed by me (Head CT: There are no focal or acute intracranial abnormalities There is mild-moderate diffuse cortical and cerebellar atrophy)
Medical Tests (Nuc Med, Echo, EKG etc): Report Reviewed by me (EKG: SINUS BRADYCARDIA MINIMAL VOLTAGE CRITERIA FOR LVH, MAY BE NORMAL VARIANT ( R in aVL ))
Lab Data: Labs Reviewed by me
Impression/Plan
-
IMPRESSION/PLAN:
#visual disturbance
Head CT: There are no focal or acute intracranial abnormalities
There is mild-moderate diffuse cortical and cerebellar atrophy
EKG: SINUS BRADYCARDIA
MINIMAL VOLTAGE CRITERIA FOR LVH, MAY BE NORMAL VARIANT ( R in aVL )
Head/Neck CTA: pending
- admit to telemetry
- consult neurology
- MRI in morning
- start aspirin
#anxiety
- continue PRN lorazepam
#hx prostate cancer
s/p prostatectomy
#migraines
#mitral valve prolapse
#hypercholesterolemia
Code status: full code
DVT prophylaxis: SCDs
--- NOTE | 2024-07-06 20:31 | W.PN.UPDATE ---
Update Note
Progress Note Update
Patient seen in conjunction with TAX COLLECTOR. I agree with the findings on exam physical. I concur with the assessment and plan.
This is a 73-year-old male who has past medical history significant for hyperlipidemia, atrial flutter prior alcohol use, chronic neck pain status post MRI with associated reduced dexterity of the lower right upper extremity who presents emergency
department with acute vision loss that was lasting about 15 minutes before resolution.
Patient in usual state of health up until onset of event. He was watching TV and noted a bright scotoma in his bilateral eyes. Return of the TV and equal to scotoma was persistent. It is then developed into a left lower vision loss that lasted
for about 15 minutes. The blurriness also lasted for about 50 minutes. Patient denied any eye pain. He reports that he appeared to have the same vision abnormalities in both eyes simultaneously. He has a headache now but not at onset of vision
loss. He had no facial droop, he had no word finding difficulties, dysarthria or dysphagia. He denies any other numbness tingling or weakness.
In the emergency department he was afebrile, blood pressure was 130/80 with a pulse of 66. ECG shows a sinus bradycardia 55, CT of the head was negative. CBC was unremarkable. Electrolytes BUN/creatinine all normal.
ESR negative.
Case discussed with neurology by ED, CT angio recommended and pending at this time.
Admitted to telemetry observation for possible TIA/CVA affecting the occipital lobe.
If CT angio is negative will start aspirin
Neurochecks every 6
Check lipid panel and A1c
MRI in a.m.
Permissive hypertension but patient's not on any antihypertensives at this time.
Or neurological consult
DVT prophylaxis with SCDs
Full code
[2024-07-06] MEDS: ASPIRIN 325 MG PO (21:02)
[2024-07-06] MEDS: ATIVAN 2 MG PO (22:54)
[2024-07-07 03:17] VITALS: BP 105/57
[2024-07-07 04:40] LABS: Urine Albumin 2+ (Neg - Trace); Urine Bilirubin Negative (Negative); Urine Character Clear (Clear); Urine Color Yellow; Urine Glucose Negative (Negative); Urine Ketone Negative (Negative); Urine Leukocyte Negative (Negative); Urine Nitrite Negative (Negative); Urine Occult Blood 1+ (Negative); Urine Specific Gravity 1.015 (<1.030); Urine Urobilinogen Negative (Neg - 1+)
[2024-07-07 05:03] LABS: Urine Bacteria Few (Negative); Urine White Cell 0-2 /HPF (0-5)
--- NOTE | 2024-07-07 05:11 | DOWNTIME ---
There was a [employer] Downtime on 07/07/2024 from 0100 to 07/07/2023 at 0235 . Downtime documentation of patient's care, including medication administrations, has been reconciled in the electronic record per guidelines. Refer to the
patient's paper chart under the miscellaneous tab to see printed paper medication records and downtime forms.
[2024-07-07 06:34] LABS: INR 0.98; PT 13.3 Sec (11.4-14.6)
[2024-07-07 06:48] LABS: Troponin I < 0.012 ng/ml
[2024-07-07 07:11] LABS: ALT (SGPT) 27 U/L (0-50); AST (SGOT) 24 U/L (17-59); Albumin 3.5 g/dl (3.5-5.0); Alkaline Phosphatase 73 U/L (38-126); Blood Urea Nitrogen 16 mg/dl (9-20); Calcium 8.8 mg/dl (8.4-10.2); Carbon Dioxide 29 mmol/L (22-30); Chloride 105 mmol/L (98-107); Estimated Creatinine Clearance 78 ml/min; Glucose 88 mg/dl (70-99); HDL Cholesterol 75 mg/dl; LDL Cholesterol, Calculated 105 mg/dl; Potassium 4.3 mmol/L (3.5-5.1); Sodium 137 mmol/L (135-145); Total Bilirubin 0.9 mg/dl (0.2-1.3); Total Cholesterol 207 mg/dl (50-199); Total Protein 5.8 g/dl (6.3-8.2); Triglyceride 135 mg/dl (10-149); Very Low Density Lipoprotein 27 mg/dl (0-30); eGFR > 60.00
--- NOTE | 2024-07-07 07:19 | CON.NEURO ---
Consultation
Order
Date of Consultation: 07/07/24
Requesting Provider: Renetta Diaz CRNP
Reason for Consult: Visual symptoms
Neurology Consultation Note.
HPI: This is a 73-year-old man who presented to [facility] on 07/06/2024 with visual symptoms. According to the patient he developed transient visual changes described as 'big round bright thing' on the TV screen that appeared blurry.
Upon looking away, he noticed a large, fuzzy brown blind spot in his vision. This blind spot persisted even after closing and reopening his eyes, and it affected both eyes equally. The patient also noted that when looking at his phone, the lower
left part of the screen disappeared from view. The visual symptoms lasted for approximately 15 minutes. A headache developed after the onset of the visual disturbance, which was unusual for the patient. He also experienced heart racing on the
morning of the incident. The patient denies recent seizures, head trauma, fever, or chills.
Additionally, the patient reports numbness and dexterity issues in his right hand for almost two months. He experiences difficulty holding objects and describes stiffness in all fingers of the affected hand. The patient mentions a history of carpal
tunnel syndrome diagnosed years ago. He reports having BL NCS/EMG that suggested brachial plexopathy and having recent R brachial plexus MRI without kat that was unremarkable.
ER VS: 153/82-90/52, 77�53, afebrile.
EKG: Sinus bradycardia at 55, QTc Int : 463 ms
Labs: Glucose 122, normal sodium, creatinine, WBCs, CRP, troponin, LDL�105,
CT head wo contrast�no acute abnormalities, frontotemporal atrophy.
CTA head/neck�suspected 50% right subclavian stenosis.
PMH: prostate cancer, DLP, MVP, sinus disease, cervical DJD, KAT, ETOH addiction
PSH: prostatectomy, tonsillectomy
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
FH: mother�lung cancer
All: Morphine
ROS: Constitutional: Negative. Negative for chills, fever and unexpected weight change.
HENT: Negative for ear pain, hearing loss, tinnitus and trouble swallowing.
Eyes: Positive for transient visual change
Respiratory: Negative for cough, choking and shortness of breath.
Cardiovascular: Positive for intermittent palpitations
Gastrointestinal: Negative for abdominal pain and vomiting.
Endocrine: Negative. Negative for cold intolerance.
Genitourinary: Negative for dysuria, flank pain and urgency.
Musculoskeletal: Negative for back pain, gait problem, neck pain and neck stiffness.
Skin: Negative for rash.
Allergic/Immunologic: Negative. Negative for immunocompromised state.
Neurological: Positive for right hand numbness and transient headache
General: Well developed. In no acute distress.
Cardio: Regular rate and rhythm without murmur. Extremities are without cyanosis or edema.
Neuro:
Mental Status: Alert, oriented to person, place, and date. Normal attention and recall. Good fund of knowledge. Follows complex requests across the midline. Comprehension, naming, and repetition intact.
Cranial Nerves: Pupils are equally round and reactive to light. EOMs full. Visual ortiz full to confrontation. No ptosis. No nystagmus. V1-V3 intact to light touch and pinprick bilaterally, symmetric. Face symmetric. Normal hearing AU. The
palate elevated well. SCMs and traps 5/5. Tongue midline. No dysarthria.
Motor: Normal bulk and tone. No pronator or arm drift. Strength 5/5 throughout. No clonus.
Reflexes: 3+ throughout the upper extremities and 3+knees. Negative Amara's bilaterally
Sensory: Normal light touch
Coordination: No dysmetria or tremor.
Gait: deferred
Assessment and Plan:
I. Probable scintillating scotoma. Differential diagnosis includes migraine with aura microthrombosis of the visual cortex, vertebrobasilar insufficiency, glaucoma
II. History of right brachial plexopathy?
III. Suspected 50% right subclavian stenosis.
- Continue Telemetry monitoring
- Avoid cerebral hypoperfusion
- Please obtain brain MRI without kat
- TTE
- Continue ASA 81 mg QD
- Lipitor 40 mg QHS.
- Vascular surgery, ophthalmology consults
- Please obtain a copy of NCS/EMG from [facility]
- DVT prophylaxis.
I personally reviewed all radiology and labs along with past medical records pertinent to current medical problems. Total time spent in patient care is 65 minutes.
Thank you for allowing us to participate in the care of this patient. We will continue to follow. Please do not hesitate to contact us with any questions or concerns.
Subjective/Objective
Subjective Data
Date of Service: July 07, 2024
Objective Data
Vital Signs
Temp Pulse Resp BP Pulse Ox
36.5 C 53 17 105/57 95
07/07/24 03:17 07/07/24 03:17 07/07/24 03:17 07/07/24 03:17 07/07/24 03:17
Lab Results
07/06/24 14:07
07/07/24 05:53
PT 13.3 Sec (11.4-14.6) 07/07/24 05:53
INR 0.98 07/07/24 05:53
APTT 27.0 Sec (23.4-35.0) 07/07/24 05:53
Sodium 137 mmol/L (135-145) 07/07/24 05:53
Potassium 4.3 mmol/L (3.5-5.1) 07/07/24 05:53
BUN 16 mg/dl (9-20) 07/07/24 05:53
Glucose 88 mg/dl (70-99) 07/07/24 05:53
Calcium 8.8 mg/dl (8.4-10.2) 07/07/24 05:53
LDL Cholesterol, Calc 105 mg/dl 07/07/24 05:53
Patient Allergies
morphine Allergy (Verified 07/06/24 13:53)
hallucinations
Medications
-
Active Medications
Generic Name Dose Route Start Last Admin
Trade Name Freq PRN Reason Stop Dose Admin
Acetaminophen 650 mg 07/06/24 22:29
Acetaminophen 325 Mg Tablet PO 08/03/24 22:28
Q4HPRN PRN
SAMANO, mild pain, or temp >100.4F
Lactobacillus/Bifidobacterium 1 cap 07/07/24 12:00
Lactobac/Bifidobac (Visbiome) PO 08/04/24 11:59
DAILY@1200 RENEA
Lorazepam 2 mg 07/06/24 22:41 07/06/24 22:54
Lorazepam 1 Mg Tablet PO 08/03/24 22:40 2 mg
TIDPRN PRN Administration
anxiety
Sodium Chloride 0 flush 07/06/24 22:00
Sodium Chloride 0.9% (Flush) Syringe IV 08/03/24 21:59
PER PROTOCOL RENEA
Home Medications
�Medication �Instructions �Recorded
Lactobac no.2-Bifidobac no.1-S. 1 cap PO DAILY@1200 07/06/24
thermo 112.5 billion cell capsule
(Visbiome)
lorazepam 2 mg tablet 2 mg PO TIDPRN PRN anxiety 07/06/24
Vital Signs and Labs
-
Vital Signs and Labs:
Vital Signs
Temp Pulse Resp BP Pulse Ox
36.8 C 60 20 117/56 96
07/07/24 11:41 07/07/24 11:41 07/07/24 11:41 07/07/24 11:41 07/07/24 11:41
Lab Results
07/06/24 14:07
07/07/24 05:53
PT 13.3 Sec (11.4-14.6) 07/07/24 05:53
INR 0.98 07/07/24 05:53
APTT 27.0 Sec (23.4-35.0) 07/07/24 05:53
Sodium 137 mmol/L (135-145) 07/07/24 05:53
Potassium 4.3 mmol/L (3.5-5.1) 07/07/24 05:53
BUN 16 mg/dl (9-20) 07/07/24 05:53
Glucose 88 mg/dl (70-99) 07/07/24 05:53
Calcium 8.8 mg/dl (8.4-10.2) 07/07/24 05:53
LDL Cholesterol, Calc 105 mg/dl 07/07/24 05:53
Medications
-
Medications:
Generic Name Dose Route Start Last Admin
Trade Name Freq PRN Reason Stop Dose Admin
Acetaminophen 650 mg 07/06/24 22:29
Acetaminophen 325 Mg Tablet PO 08/03/24 22:28
Q4HPRN PRN
SAMANO, mild pain, or temp >100.4F
Aspirin 81 mg 07/07/24 10:00 07/07/24 09:56
Aspirin 81 Mg Chewable Tablet PO 08/04/24 09:59 81 mg
DAILY RENEA Administration
Lactobacillus/Bifidobacterium 1 cap 07/07/24 12:00 07/07/24 12:02
Lactobac/Bifidobac (Visbiome) PO 08/04/24 11:59 1 cap
DAILY@1200 RENEA Administration
Lorazepam 2 mg 07/06/24 22:41 07/06/24 22:54
Lorazepam 1 Mg Tablet PO 08/03/24 22:40 2 mg
TIDPRN PRN Administration
anxiety
Sodium Chloride 0 flush 07/06/24 22:00
Sodium Chloride 0.9% (Flush) Syringe IV 08/03/24 21:59
PER PROTOCOL RENEA
Home Medications
-
Home Medications
Lactobac no.2-Bifidobac no.1-S. thermo 112.5 billion cell capsule (Visbiome) 1 cap PO DAILY@1200 07/06/24
lorazepam 2 mg tablet 2 mg PO TIDPRN PRN anxiety 07/06/24
[2024-07-07 07:26] VITALS: BP 127/71
--- NOTE | 2024-07-07 08:37 | W.PN.HOSP.TC ---
Addendum entered and electronically signed by Silvia Titus MD 07/07/24 14:56:
total DC time 36 min
Original Note:
Today's Communication/Plan
-
see A/P
Assessment / Plan
Assessment / Plan
73-year-old male with past medical history significant for hyperlipidemia, atrial flutter, prior alcohol use, chronic neck pain status post MRI with associated reduced dexterity of the lower right upper extremity, who presented with acute vision
loss that lasted for about 15 minutes before resolution.
Patient was watching TV when he had acute onset of blurry vision and vision lost bilaterally in the left lower quadrant, he states he turned TV off and continued with symptoms for approximately 15 minutes. Patient reports that vision has returned
and remains complete with no deficit. Patient called and notified his primary care provider who instructed him to go to ED for evaluation and treatment. Patient does report a mild headache post visual disturbance. Patient denies any episode similar
to this in the past.
A/P
# BL visual disturbance, resolved. Admitted for TIA/stroke work up
History provided sounds like Left Homonymous Hemianopia
Head CT showed no focal or acute intracranial abnormalities
Head/Neck CTA is unrevealing
Check MRI brain
cont tele monitoring, no event noted overnight
Neurology consulted
Started aspirin, cont
# anxiety
continue PRN lorazepam
# hx prostate cancer s/p prostatectomy
# migraines
# mitral valve prolapse
# hypercholesterolemia
LDL 105
d/w pt regarding statin, he declined statin and states that he will use dietary restriction for cholesterol control
Code status: full code
DVT prophylaxis: SCDs
Anticipated Discharge: Within 24 hours
Subjective/Interval History
-
Date of Service: July 07, 2024
Objective Data
-
Labs:
Laboratory Results
07/07/24
05:53
PT 13.3
INR 0.98
APTT 27.0
Sodium 137
Potassium 4.3
Chloride 105
Carbon Dioxide 29
BUN 16
Creatinine 0.9
Glucose 88
Calcium 8.8
Total Bilirubin 0.9
AST 24
ALT 27
Alkaline Phosphatase 73
Vital Signs:
Vital Signs
Temp Pulse Resp BP Pulse Ox
37.1 C 56 20 127/71 97
07/07/24 07:26 07/07/24 07:26 07/07/24 07:26 07/07/24 07:26 07/07/24 07:26
I&O
07/06/24 07/07/24 07/08/24
06:59 06:59 06:59
Intake Total 0 / 0
Balance 0 / 0
Review of Systems
-
All other systems: Reviewed and negative
EENT: Denies Blurry Vision (resolved )
Physical Exam
-
General: Well Developed, Well Nourished, No Apparent Distress, Comfortable and Conversant; Negative Respiratory Distress
HEENT: Normocephalic, Atraumatic, Nose Appears Normal and Ears Appear Normal; Negative Oxygen
Respiratory: Clear to Auscultation and Non Labored Respirations; Negative Accessory Resp Muscle Use
Cardiac: Regular Rhythm and S1/S2
GI: Soft, Nontender, Nondistended and Normal Bowel Sounds
Skin: Warm and Dry
Neuro: Awake, Alert, Oriented, AO x 3 and Nonfocal/Grossly Intact; Negative Slurred Speech or Facial Droop
Psych: Calm and Intact Judgement/Insight
Data Reviewed
-
CT Scan: Report Reviewed by me and Discussed with Patient
Labs: Labs Reviewed by me
[2024-07-07 09:25] VITALS: BP 136/77
[2024-07-07 09:45] LABS: Glycohemoglobin (HgbA1c) 5.1 % (4.0-5.6)
[2024-07-07] MEDS: LOW STRENGTH ASPIRIN 81 MG PO (09:56)
--- NOTE | 2024-07-07 10:05 | PTOTSP ---
Speech Therapy Evaluation:
Pt presents with oropharyngeal swallow that appears WFL at bedside. Oral parameters WFL with no overt s/sx of aspiration across trials. No significant predisposing risk factors of dysphagia. WBC WNL. Pt passed 3oz swallow screen. Imaging negative
thus far.
Recommend:
1. Continue regular/thins
2. Medications as tolerated
3. General aspiration precautions
4. FLYER MAKER to s/o - please reconsult if indicated
[2024-07-07 11:36] VITALS: BP 117/56; PULSE 58; O2SAT 96
[2024-07-07 11:41] VITALS: BP 117/56
[2024-07-07] MEDS: VISBIOME 1 CAP PO (12:02)
[2024-07-07 13:50] LABS: Magnesium 2.1 mg/dl (1.6-2.3)
--- NOTE | 2024-07-07 14:46 | W.DCSUMMARY ---
Discharge Summary
Discharge Data
Date of Admission: 07/06/24
Date of Discharge: 07/07/24
-
Pending Results: No
Hospital Course
Principal Diagnosis:
Bilateral visual disturbance, resolved.
Chronic Diagnoses:�
Anxiety
History of prostate cancer s/p prostatectomy
Migraines
Mitral valve prolapse
Hypercholesterolemia, LDL 105
Chronic neck pain status post MRI with associated reduced dexterity of the lower right upper extremity
Atrial flutter
Consultations:�
Neurology
Procedures:�
None
Clinical course:�
This is a 73-year-old male with past medical history as stated above, who presented with acute vision loss that lasted for about 15 minutes before resolution.
He was apparently watching TV when he had acute onset of blurry vision and vision lost bilaterally in the left lower quadrant. After about 15 minutes, his vision returned without any deficit.
Problem 1:
BL visual disturbance, resolved. Admitted for TIA/stroke work up.
His CT head, CT head and neck angio, and MRI brain were unrevealing and did not show any acute stroke.
He can follow-up with ophthalmology outpatient for the visual deficit event.
He was started with aspirin this admission which he can continue going forward.
As for the rest of his medical problems, they were stable during his hospital stay.
Discharge Plan
-
Patient Disposition: Home (Routine Discharge)
Discharge Diagnosis/Procedures: Bilateral visual disturbance, resolved.
Mild hyperlipidemia
Condition: Fair
Diet: As tolerated, Low Fat and Low Cholesterol
Activity: As tolerated
Driving Restrictions: Not until seen by your Dr
Blood Work: Lipid panel with the PCP in 3 months following strict dietary restriction
Activity Restrictions/Additional Instructions:
Please see an perioperative tech as soon as possible for your visual disturbance
Referrals:
Dallin Bailey, DO [Family Provider] - in less than 1 week
Prescriptions:
New
aspirin 81 mg Tablet,Chewable
81 mg PO DAILY Qty: 30 0RF
Continued
lorazepam 2 mg Tablet
2 mg PO TIDPRN PRN (Reason: anxiety)
Visbiome 112.5 billion cell Capsule
1 cap PO DAILY@1200
Discharge Orders:
Discharge Patient (As Directed); Ordered 07/07/24
Ordered By: Silvia Titus
Discharge Date and Time
Print Language: KINYARWANDA
--- NOTE | 2024-07-07 14:59 | CM ---
Alert awake oriented patient who lives with his Kalina who lives in a 2 story home with 2 step to enter and 5 steps to bed and bathroom. He is independent in driving and in all activities of daily living.He was offered VN he declined need.His
will drive him home.[facility] letter explained Copy given Signed copy on chart.
No VN hx / No SNF history
Pharmacy [facility]
PCP DR Bailey
PLAN Home Declined VN
[2024-07-07 15:20] VITALS: BP 145/78
== END 2024-07-07 16:06 | disposition home or self-care (01) ==
LOC: 4 EAST ACU 21:24
PROVIDERS: Nurse Practitioner Family; Physician Assistant Medical; ADMITTING PHYSICIAN Internal Medicine; ATTENDING PHYSICIAN Internal Medicine; CONSULT PHYSICIAN Psychiatry & Neurology Neurology; EMERGENCY PHYSICIAN Student in an Organized Health Care Education/Training Program; FAMILY PHYSICIAN Family Medicine
DX: H53.9 Unspecified visual disturbance (principal); R51.9 Headache, unspecified; R42 Dizziness and giddiness; H54.7 Unspecified visual loss; R00.1 Bradycardia, unspecified; R00.2 Palpitations; E78.5 Hyperlipidemia, unspecified; I48.92 Unspecified atrial flutter; E78.00 Pure hypercholesterolemia, unspecified; G89.29 Other chronic pain; H52.4 Presbyopia; G31.9 Degenerative disease of nervous system, unspecified; I34.1 Nonrheumatic mitral (valve) prolapse; F41.1 Generalized anxiety disorder; F10.21 Alcohol dependence, in remission; R00.0 Tachycardia, unspecified; I70.90 Unspecified atherosclerosis; M47.812 Spondylosis without myelopathy or radiculopathy, cervical region; Z90.79 Acquired absence of other genital organ(s); Z80.1 Family history of malignant neoplasm of trachea, bronchus and lung; Z88.5 Allergy status to narcotic agent; Z85.46 Personal history of malignant neoplasm of prostate; Z79.899 Other long term (current) drug therapy; Z90.89 Acquired absence of other organs
CPT/HCPCS: 70450; 70496; 70498; 70551; 80048; 80053; 80061; 81003; 81015; 83036; 83735; 84484; 85025; 85610; 85652; 85730; 86140; 92610; 93005; 97161; 97167; 99285; G0378; Q9967

== ENCOUNTER → 2024-07-14 11:21 | Outpatient (REF) | payer OTHER, SELFPAY | LOC: RAD 11:21 | PROVIDERS: ATTENDING PHYSICIAN Podiatrist Foot & Ankle Surgery; FAMILY PHYSICIAN Family Medicine | DX: M76.61 Achilles tendinitis, right leg (principal); M77.51 Other enthesopathy of right foot and ankle | CPT/HCPCS: 76882 ==

== ENCOUNTER 2024-12-16 13:58 | Emergency (ER) | payer OTHER, SELFPAY ==
[2024-12-16 14:01] VITALS: BP 140/97
--- NOTE | 2024-12-16 14:20 | ED.GENMED ---
History of Present Illness
<Bryce Nunez DO - Last Filed: 12/16/24 18:59>
General
Chief Complaint: Cardiac Symptoms
Time Seen by Provider: 12/16/24 14:23
<Yolanda Mcdaniels PA-C - Last Filed: 12/16/24 17:38>
General
Source: patient
Exam Limitations: none
Nursing documentation reviewed up to this point in time: agreed with
History of Present Illness
History of Present Illness:
Patient is a 74-year-old male who presents to the emergency department from primary care office with elevated heart rate. Patient had a follow-up appointment today with his primary care provider regarding ongoing back/neck discomfort and was found
to have a heart rate in the 140s and was referred to the emergency department.
Patient does state that he felt like his heart has been racing today. He is unsure when the symptoms started however does report mild associated shortness of breath. He denies any chest pain. He denies any abdominal pain, dizziness, or
lightheadedness.
Of note�patient reports that he has been taking significant amount of Ativan, which has prescribed by his primary care provider, to treat muscle spasms in his back. He states that he takes up to 10 to 12 mg of Ativan per day for the past
weeks/months (timing somewhat uncertain). He also states that he has been drinking about a sixpack of beer every night. His last drink was last night.
He feels anxious about his neck pain. He denies any history of tachycardia in the past.
Past History
<Yolanda Mcdaniels PA-C - Last Filed: 12/16/24 17:38>
Past History
ED Past Medical History: Cancer and Hypercholesterolemia
ED Past Surgical History: Tonsilectomy and Urological
Social History
Tobacco: Non-smoker
Alcohol: None
Drug: None
Personal:
Living: with family
Review of Systems
<Yolanda Mcdaniels PA-C - Last Filed: 12/16/24 17:38>
Review of Systems
Allergies reviewed?: Yes
All Other Systems: ROS reviewed and negative except as documented in HPI and ROS
Phy Exam
<Yolanda Mcdaniels PA-C - Last Filed: 12/16/24 17:38>
Physical Exam
Physical Exam:
Vitals: Tachycardic, normotensive. Afebrile
General: Patient is in no apparent distress.
Skin: Warm and dry, no rashes or lesions
Head: Normocephalic, atraumatic
Eyes: Sclera nonicteric. EOMs intact. No nystagmus.
Throat: Protecting airway
Neck: Normal ROM, no cervical spine tenderness, no meningismus. No JVD
Cardiac: Tachycardic, regular rhythm, no murmurs. 2+ palpable radial pulses bilaterally
Pulm: Normal respiratory effort, no wheezes, rales, rhonchi heard on exam
Abdomen: Abdomen soft and nontender.
Extremities: No evidence of cyanosis or edema
Neuro: AAOx3. Grossly intact.
Psychiatric: Normal affect.
Course
<Bryce Nunez DO - Last Filed: 12/16/24 18:59>
Orders/Labs/Results
Orders:
Orders
12/16/24
Electrocardiogram (*1) Stat
Comment: ALREADY DONE IN ED
12/16/24 13:59
Electrocardiogram (*1) Urgent
Reason for Study: Tachycardia
EKG- Treatment ONCE
12/16/24 14:17
Adenosine [Adenocard] 18 mg .ROUTE .STK-MED ONE
12/16/24 14:21
Electrocardiogram (*1) Stat
Comment: ALREADY DONE IN ED
12/16/24 14:24
Alcohol Urgent
Complete Blood Count/With Diff Urgent
Comprehensive Metabolic Panel Urgent
Magnesium Urgent
TSH Reflex To Free T4 Urgent
Comment: ADD ON
Troponin I Urgent
12/16/24 14:31
Add On- LAB Urgent
Tests Added?: magnesium, TSH w/ reflex to T4, alcohol
12/16/24 14:32
Adenosine [Adenocard] 6 mg IV NOW STA
Abnormal Lab Results
12/16/24
14:24
Abs Immat Gran (auto) 0.1 H 10^3/uL
(0-0.05)
Absolute Monos (auto) 0.8 H 10^3/uL
(0.1-0.6)
Glucose 109 H mg/dl
(70-99)
12/16/24 14:24
12/16/24 14:24
Vital Signs
Initial and Last Documented VS:
Initial Vital Signs
Temp Pulse Resp BP Pulse Ox
98.0 F 144 16 140/97 98
12/16/24 14:01 12/16/24 14:01 12/16/24 14:01 12/16/24 14:01 12/16/24 14:01
Last Documented Vital Signs
Temp Pulse Resp BP Pulse Ox
98.0 F 63 15 133/86 95
12/16/24 14:01 12/16/24 17:45 12/16/24 17:45 12/16/24 14:30 12/16/24 17:45
<Yolanda Mcdaniels PA-C - Last Filed: 12/16/24 17:38>
Orders/Labs/Results
Orders:
Orders
12/16/24
Electrocardiogram (*1) Stat
Comment: ALREADY DONE IN ED
12/16/24 13:59
Electrocardiogram (*1) Urgent
Reason for Study: Tachycardia
EKG- Treatment ONCE
12/16/24 14:17
Adenosine [Adenocard] 18 mg .ROUTE .STK-MED ONE
12/16/24 14:21
Electrocardiogram (*1) Stat
Comment: ALREADY DONE IN ED
12/16/24 14:24
Alcohol Urgent
Complete Blood Count/With Diff Urgent
Comprehensive Metabolic Panel Urgent
Magnesium Urgent
TSH Reflex To Free T4 Urgent
Comment: ADD ON
Troponin I Urgent
12/16/24 14:31
Add On- LAB Urgent
Tests Added?: magnesium, TSH w/ reflex to T4, alcohol
12/16/24 14:32
Adenosine [Adenocard] 6 mg IV NOW STA
Abnormal Lab Results
12/16/24
14:24
Abs Immat Gran (auto) 0.1 H 10^3/uL
(0-0.05)
Absolute Monos (auto) 0.8 H 10^3/uL
(0.1-0.6)
Glucose 109 H mg/dl
(70-99)
12/16/24 14:24
12/16/24 14:24
Vital Signs
Initial and Last Documented VS:
Initial Vital Signs
Temp Pulse Resp BP Pulse Ox
98.0 F 144 16 140/97 98
12/16/24 14:01 12/16/24 14:01 12/16/24 14:01 12/16/24 14:01 12/16/24 14:01
Last Documented Vital Signs
Temp Pulse Resp BP Pulse Ox
98.0 F 63 15 133/86 95
12/16/24 14:01 12/16/24 17:45 12/16/24 17:45 12/16/24 14:30 12/16/24 17:45
<Yolanda Mcdaniels PA-C - Last Filed: 12/16/24 17:38>
MDM/Problems Addressed
Differential Diagnosis Includes:
Not limited to: Cardiac arrhythmia, electrolyte abnormality, acute dehydration, alcohol withdrawal, alcohol intoxication, benzo withdrawal, etc.
MDM/Problems Addressed:
74-year-old male presenting with elevated heart rate from primary care office. He reports mild shortness of breath however otherwise asymptomatic, no chest pain. He does report significant use of Ativan and increased alcohol consumption treating
back spasms�up to 10 to 12 mg of Ativan per day. On arrival�patient is tachycardic although normotensive and in no apparent distress. He is in no apparent respiratory distress. Physical exam as above.
Initial EKG obtained in triage shows a rate of 136�appears to be either SVT or atrial flutter with 2-1 block. ED plan: Will check labs, electrolytes. Will give dose of adenosine and monitor patient
Update: Patient spontaneously converted to normal sinus rhythm prior to administration of adenosine or any other medication. His heart rate is regular and in the 80s. His symptoms had improved. Lab work pending. Will continue to monitor
Update: Labs reviewed. CBC and chemistry without clinically significant abnormalities. Alcohol level undetectable. Discussed concern regarding usage of benzos and alcohol use with patient. Offered rehab/detox program which patient is open to.
Will consult [facility] for further evaluation. Patient has no current signs of alcohol withdrawal.
Update 5:30 PM: Discussed with the [facility]. Patient agreeable to inpatient rehab/detox program. Disposition pending bed search. Case signed out to attending physician.
Chronic conditions affecting care:
N/A
Acute Exacerbation and/or Progression of Chronic Illness:
N/A
<Yolanda Mcdaniels PA-C - Last Filed: 12/16/24 17:38>
*Pulse Oximetry
SaO2: 98
Oxygen Mode of Delivery: Room air
Patient hypoxic: no
*EKG
Interpreted by ED Provider?: Yes
EKG Intrepretation Date: 12/16/24
Interpretation: abnormal
Comparison EKG: no comparison EKG present
Heart Rate: 136
Rate: tachycardiac
Rhythm: SVT
[place]: normal axis
Interval: normal QT interval
QRS Pattern: normal QRS
Ischemia: non-specific ST changes
*Compressor Assembler Interpretation
Rate: tachycardiac
Interpretation: abnormal
Heart Rate: 133
Rhythm: SVT
*Critical Care Note
Total Time (30-74mins, 75-104mins- exclusive of procedures): Not Applicable
<Bryce Nunez DO - Last Filed: 12/16/24 18:59>
Update Note
Update Note:
7 PM update patient accepted at [place] for bed tomorrow patient is hemodynamically stable he will go home tonight go to [place] tomorrow by POV
ED Attending Note
<Bryce Nunez, - Last Filed: 12/16/24 18:59>
ED Attending Note
Patient seen and examined by attending physician: Yes
I performed the substantive portion of visit, reviewed & personally made and approve the management plan that is documented in note by myself or MARGARITO.: Yes
ED Attending Note:
Seen with PA examined independently 74-year-old male PCP referral for tachycardia, looks like he was in SVT which broke spontaneously been using more than prescribed Ativan supplementing with alcohol
<Yolanda Mcdaniels PA-C - Last Filed: 12/16/24 17:38>
-
Portions of this chart may have been created with voice recognition software.� Occasional wrong word or��sound alike� substitutions may have occurred due to the inherent limitations of voice recognition software.
Discharge Plan
Departure
Patient Disposition: Home (Routine Discharge)
Date of Disposition: 12/16/24
Time of Disposition: 18:58
Patient with high blood pressure during this ER visit?: No
Condition: Good
Discharge Problem:
SVT, Alcoholism, Ativan abuse
Instructions: Alcohol and your health
Prescriptions:
No Action
lorazepam 2 mg Tablet
2 mg PO TIDPRN PRN (Reason: anxiety)
Visbiome 112.5 billion cell Capsule
1 cap PO DAILY@1200
aspirin 81 mg Tablet,Chewable
81 mg PO DAILY Qty: 30 0RF
Referrals:
Dallin Bailey, DO [Family Provider, Family Practice]
Activity Restrictions/Additional Instructions:
Follow-up in [place] tomorrow as set up through [facility]
Interventions
Interventions:
*Risk Screen - Suicide Last Done: 12/16/24 14:01
*General Assessment Last Done: 12/16/24 14:28
*Neglect/Abuse Screening Last Done: 12/16/24 14:01
*ED- Fall Risk Assessment Last Done: 12/16/24 14:28
*ED COVID-19 Vaccine History Last Done: 12/16/24 14:28
ED- Pulmonary Assessment Last Done: 12/16/24 14:28
ED- Cardiac Assessment Last Done: 12/16/24 14:28
Discharge Date and Time
Print Language: SINHALA
[2024-12-16 14:25] VITALS: BMI 30.7
[2024-12-16 14:27] VITALS: BP 147/86
[2024-12-16 14:30] VITALS: BP 133/86
[2024-12-16 14:42] LABS: Hematocrit 48.4 % (39.0-52.0); Hemoglobin 16.6 g/dL (13.0-18.0); Mean Corp Hgb Conc. 34.3 g/dL (33.0-37.0); Mean Corpuscular Volume 90.0 fL (80.0-94.0); Nucleated Red Blood Cells % 0 % (-); Platelet Count 220 10^3/uL (130-400); Red Cell Dist. Width 13.2 % (11.5-14.5)
[2024-12-16 15:11] LABS: ALT (SGPT) 33 U/L (0-50); AST (SGOT) 32 U/L (17-59); Albumin 4.8 g/dl (3.5-5.0); Alkaline Phosphatase 78 U/L (38-126); Blood Urea Nitrogen 17 mg/dl (9-20); Calcium 9.9 mg/dl (8.4-10.2); Carbon Dioxide 27 mmol/L (22-30); Chloride 104 mmol/L (98-107); Estimated Creatinine Clearance 89 ml/min; Glucose 109 mg/dl (70-99); Magnesium 2.2 mg/dl (1.6-2.3); Potassium 4.8 mmol/L (3.5-5.1); Sodium 138 mmol/L (135-145); Total Protein 7.7 g/dl (6.3-8.2); eGFR > 60.00
[2024-12-16 15:19] LABS: Troponin I 0.012 ng/ml
== END 2024-12-16 19:15 | disposition home or self-care (01) ==
LOC: EMR 13:58
PROVIDERS: EMERGENCY PHYSICIAN Emergency Medicine; FAMILY PHYSICIAN Family Medicine
DX: I47.10 Supraventricular tachycardia, unspecified (principal); F10.20 Alcohol dependence, uncomplicated; F13.10 Sedative, hypnotic or anxiolytic abuse, uncomplicated; E78.00 Pure hypercholesterolemia, unspecified
CPT/HCPCS: 99283; 96374; 80053; 82077; 83735; 84443; 84484; 85025; 93005; J0153

== ENCOUNTER 2025-02-03 15:17 | Emergency (ER) | payer OTHER, SELFPAY ==
[2025-02-03 15:23] VITALS: BP 104/73
[2025-02-03 15:57] LABS: Hematocrit 47.4 % (39.0-52.0); Hemoglobin 16.1 g/dL (13.0-18.0); Mean Corp Hgb Conc. 34.0 g/dL (33.0-37.0); Mean Corpuscular Volume 87.6 fL (80.0-94.0); Nucleated Red Blood Cells % 0 % (-); Platelet Count 210 10^3/uL (130-400); Red Cell Dist. Width 12.1 % (11.5-14.5)
[2025-02-03 16:08] VITALS: BP 113/86
[2025-02-03 16:08] LABS: INR 0.94; PT 13.1 Sec (11.4-14.6)
[2025-02-03 16:17] LABS: Blood Urea Nitrogen 14 mg/dl (9-20); Glucose 126 mg/dl (70-99)
[2025-02-03 16:18] LABS: ALT (SGPT) 47 U/L (0-50); AST (SGOT) 32 U/L (17-59); Albumin 4.7 g/dl (3.5-5.0); Alkaline Phosphatase 69 U/L (38-126); Calcium 9.9 mg/dl (8.4-10.2); Carbon Dioxide 26 mmol/L (22-30); Chloride 105 mmol/L (98-107); Potassium 4.7 mmol/L (3.5-5.1); Sodium 137 mmol/L (135-145); Total Protein 7.3 g/dl (6.3-8.2); Troponin I 0.014 ng/ml; eGFR > 60.00
[2025-02-03 16:37] LABS: Magnesium 2.0 mg/dl (1.6-2.3)
[2025-02-03] MEDS: CARDIZEM 15 MG IV (16:48)
[2025-02-03 16:53] VITALS: BP 113/60
--- NOTE | 2025-02-03 16:53 | ED.GENMED ---
History of Present Illness
General
Chief Complaint: Cardiac Symptoms
Source: patient
Exam Limitations: none
Time Seen by Provider: 02/03/25 16:06
Nursing documentation reviewed up to this point in time: agreed with except (Patient was not the PCP he was at a pain management physician expecting to have an injection in his neck)
History of Present Illness
History of Present Illness:
74-year-old male referred from his outpatient physicians he was there to get an injection in his neck he has been having recurrent pain from his neck into his right elbow and hand, started weeks ago, he has been weaning off of benzodiazepines under
the supervision of his PCP, he gets palpitations occasionally apparently was tachycardic today at the physicians office referred here for evaluation looks like he is in a tacky arrhythmia, which she states is new he has been dry from alcohol for 50
days, apparently made some comments of self-harm in triage she states they were said in jest because he did not want to wait he confirms with me that he is not suicidal homicidal,
Past History
Past History
ED Past Medical History: Cancer and Hypercholesterolemia; Negative Arrthythmia
ED Past Surgical History: Tonsilectomy and Urological; Negative Cardiac
Social History
Tobacco: Non-smoker
Alcohol: Former
Drug: None
Personal:
Living: with family
Employment: Retired
Phy Exam
Physical Exam
Physical Exam:
Physical Exam
General: no apparent distress, not acutely ill
Neck: Midline trachea
Heart: Tachycardia
Lungs: no acute respiratory distress. clear bilaterally
Neuro: alert and oriented. no focal neurological deficits
Skin: no rash
Psychiatric: well kept. interactive and cooperative
Extremities: no edema.
Course
Orders/Labs/Results
Orders:
Orders
02/03/25
Electrocardiogram (*1) Stat
Comment: DONE EMR
02/03/25 15:30
Electrocardiogram (*1) Urgent
Reason for Study: Chest Pain
EKG- Treatment ONCE
02/03/25 15:39
Complete Blood Count/With Diff Urgent
Comprehensive Metabolic Panel Urgent
Magnesium Urgent
Comment: MAG ADDED ON BY FLOOR 4:20PM 02-03-25
Prothrombin Time Urgent
Troponin I Urgent
02/03/25 16:18
Add On- LAB Urgent
Tests Added?: magnesium
Adenosine [Adenocard] 12 mg IV NOW STA
02/03/25 16:40
Diltiazem HCl [Cardizem] 15 mg IV NOW STA
02/03/25 16:55
Electrocardiogram (*1) Urgent
Reason for Study: Palpitations
02/03/25 16:56
EKG- Treatment ONCE
Abnormal Lab Results
02/03/25
15:39
MPV 11.2 H fL
(7.4-10.4)
Absolute Monos (auto) 0.7 H 10^3/uL
(0.1-0.6)
Glucose 126 H mg/dl
(70-99)
02/03/25 15:39
02/03/25 15:39
Vital Signs
Initial and Last Documented VS:
Initial Vital Signs
Temp Pulse Resp BP Pulse Ox
98.2 F 144 16 104/73 96
02/03/25 15:23 02/03/25 15:23 02/03/25 15:23 02/03/25 15:23 02/03/25 15:23
Last Documented Vital Signs
Temp Pulse Resp BP Pulse Ox
98.2 F 67 19 114/59 96
02/03/25 15:23 02/03/25 17:15 02/03/25 17:15 02/03/25 17:00 02/03/25 16:55
MDM/Problems Addressed
Differential Diagnosis Includes:
SVT AF a flutter atrial tach sinus tach less likely electrolyte abnormality benzo withdrawal
MDM/Problems Addressed:
Tacy- arrhythmia
Chronic conditions affecting care:
Chronic pain likely radicular
Acute Exacerbation and/or Progression of Chronic Illness: Arrhythmia
*Pulse Oximetry
SaO2: 96
Oxygen Mode of Delivery: Room air
Patient hypoxic: no
*Critical Care Note
Total Time (30-74mins, 75-104mins- exclusive of procedures): 12
Update Note
Update Note:
6:15 PM converted with 15 mg of IV Cardizem to normal sinus rhythm
Labs noted patient looks comfortable has seen [facility] previously,
ED Attending Note
-
Portions of this chart may have been created with voice recognition software.� Occasional wrong word or��sound alike� substitutions may have occurred due to the inherent limitations of voice recognition software.
Discharge Plan
Departure
Patient Disposition: Home (Routine Discharge)
Date of Disposition: 02/03/25
Time of Disposition: 17:56
Patient with high blood pressure during this ER visit?: No
Condition: Good
Covid-19: Not Applicable
Discharge Problem:
Tachycardia
Instructions: Overview of heart arrhythmias, Palpitations - ED (DC)
Prescriptions:
New
diltiazem HCl [Matzim LA] 180 mg tablet extended release 24 hr
180 mg PO DAILY Qty: 30 3RF
No Action
lorazepam 2 mg Tablet
2 mg PO TIDPRN PRN (Reason: anxiety)
Visbiome 112.5 billion cell Capsule
1 cap PO DAILY@1200
aspirin 81 mg Tablet,Chewable
81 mg PO DAILY Qty: 30 0RF
Referrals:
Dallin Bailey DO [Family Provider, Family Practice] - Next open appointment
Tanya Craft MD [Active, Cardiology] - Next open appointment
Activity Restrictions/Additional Instructions:
Follow-up with your primary care doctor and data virtualization consultant
Interventions
Interventions:
*Risk Screen - Suicide Last Done: 02/03/25 15:23
*General Assessment Last Done: 02/03/25 16:09
*Neglect/Abuse Screening Last Done: 02/03/25 15:23
*ED- Fall Risk Assessment Last Done: 02/03/25 16:09
*ED COVID-19 Vaccine History Last Done: 02/03/25 16:09
ED- Pulmonary Assessment Last Done: 02/03/25 16:09
ED- Cardiac Assessment Last Done: 02/03/25 16:09
Discharge Date and Time
Print Language: CONGOLESE
[2025-02-03 17:00] VITALS: BP 114/59
[2025-02-03 18:00] VITALS: BP 99/71
[2025-02-03 19:28] LABS: TSH 2.01 uIU/ml (0.47-4.68)
== END 2025-02-03 18:25 | disposition home or self-care (01) ==
LOC: EMR 15:17
PROVIDERS: Student in an Organized Health Care Education/Training Program; EMERGENCY PHYSICIAN Emergency Medicine; FAMILY PHYSICIAN Family Medicine
DX: I47.10 Supraventricular tachycardia, unspecified (principal); G89.29 Other chronic pain; E78.00 Pure hypercholesterolemia, unspecified
CPT/HCPCS: 96374; 99284; 80053; 83735; 84443; 84484; 85025; 85610; 93005